=== PATIENT | male | born 1955 | race Caucasian/White ===

== ENCOUNTER 2017-07-04 09:10 | Emergency (ER) | payer BC ==
--- NOTE | 2017-07-04 10:14 | EDM.PDOC ---
ED HPI GENERAL MEDICAL PROBLEM - General Chief Complaint: Neuro Symptoms/Deficits Stated Complaint: MEMORY LOSS? Time Seen by Provider: 07/04/17 09:50 Source of Information: Reports: Patient, Family, RN History Limitations: Reports: No Limitations - History of Present Illness INITIAL COMMENTS - FREE TEXT/NARRATIVE: 61 yo male with a pHx of borderline AODM, and peripheral neuropathy for 14 yrs that has been stable awoke in the night with a mild L sided GALLARDO and then when he awoke this morning he had amnesia to yesterday's events for a few hrs. Is now back to normal, except he still has a GALLARDO. Here he has a mild BP elevation which is not normal for him, his last BP check was in 12/22. No family hx of dementia or cerebral aneurysms. No hx of head injury with LOC. No seizure hx. He takes an ASA tablet daily including today. He takes no other meds. He is here today with his who was the main medical van driver to get him to come in today. Onset: Today Onset Date: 07/04/17 Onset Time: 07:00 Duration: Hour(s):, Resolved Prior to Arrival Location: Reports: Head Quality: Reports: Ache Severity: Mild (Residual L sided GALLARDO persists, amnesia is resolved.) Improves with: Reports: Other (? time.) Worsens with: Reports: Other (unknown) Context: Reports: Other (unknown) Associated Symptoms: Reports: Headaches (mild, left sided) Treatments [employer] JOU[employer]LIST: Reports: Aspirin - Related Data Allergies Allergy/AdvReac Type Severity Reaction Status Date / Time No Known Allergies Allergy Verified 07/04/17 09:28 Home Meds: Home Meds Aspirin 1 tab PO DAILY 07/04/17 [History] Past Medical History - Past Surgical History GI Surgical History: Reports: Appendectomy Musculoskeletal Surgical History: Reports: Knee Replacement Social & Family History - Tobacco Use Smoking Status *Q: Never Smoker ED ROS GENERAL - Review of Systems Review Of Systems: See Below Constitutional: Reports: No Symptoms HEENT: Reports: No Symptoms Respiratory: Reports: No Symptoms Cardiovascular: Reports: No Symptoms Endocrine: Reports: No Symptoms GI/Abdominal: Reports: No Symptoms : Reports: No Symptoms Musculoskeletal: Reports: No Symptoms Skin: Reports: No Symptoms Neurological: Reports: Confusion (now resolved), Headache (mild, L sided) Psychiatric: Reports: No Symptoms ED EXAM, NEURO - Physical Exam Exam: See Below Exam Limited By: No Limitations General Appearance: Alert, WD/WN, No Apparent Distress Eye Exam: Bilateral Eye: EOMI, Normal Inspection, PERRL Ears: Normal External Exam, Normal Canal, Hearing Grossly Normal, Normal TMs Nose: Normal Inspection, Normal Mucosa, No Blood Throat/Mouth: Normal Inspection, Normal Lips, Normal Oropharynx, Normal Voice, No Airway Compromise Head Exam: Atraumatic, Normocephalic Neck: Normal Inspection, Supple, Non-Tender. No: Carotid Bruit Respiratory/Chest: No Respiratory Distress, Lungs Clear, Normal Breath Sounds, No Accessory Muscle Use Cardiovascular: Regular Rate, Rhythm, No Edema GI/Abdominal: Normal Bowel Sounds, Soft, Non-Tender Neurological: Alert, Normal Mood/Affect, CN II-XII Intact, Normal Gait, No Motor /Sensory Deficits, Oriented x 3. No: Ataxia, Abnormal Finger to Nose, Babinski , Tremor, Difficulty Walking Back Exam: Normal Inspection. No: CVA Tenderness (R), CVA Tenderness (L) Extremities: Normal Inspection, Normal Range of Motion, Non-Tender, No Pedal Edema Psychiatric: Normal Affect, Normal Mood Skin Exam: Warm, Dry, Intact, Normal Color, No Rash Course - Vital Signs Text/Narrative:: Consult with an Toni Perla neurologist @ 1040h Last Recorded V/S: Last Vital Signs Temp 36.1 C 07/04/17 09:39 Pulse 77 07/04/17 09:39 Resp 14 07/04/17 09:39 BP 146/95 H 07/04/17 09:39 Pulse Ox 98 07/04/17 09:39 - Orders/Labs/Meds Orders: Active Orders 24 hr Category Date Time Status Cardiac Monitoring [RC] .As Directed Care 07/04/17 10:02 Active Brain wo Cont [MR] Stat Exams 07/04/17 10:05 Taken Labs: Laboratory Tests 07/04/17 07/04/17 07/04/17 Range/Units 10:05 10:05 10:05 WBC 8.9 (4.5-11.0) K/uL RBC 5.63 (4.30-5.90) M/uL Hgb 16.1 H (12.0-15.0) g/dL Hct 47.7 (40.0-54.0) % MCV 85 (80-98) fL MCH 29 (27-31) pg MCHC 34 (32-36) % Plt Count 289 (150-400) K/uL PT 10.4 (9.5-12.0) sec INR 0.97 (0.80-1.20) APTT 25.9 L (27.0-36.0) sec Sodium 139 L (140-148) mmol/L Potassium 4.5 (3.6-5.2) mmol/L Chloride 105 (100-108) mmol/L Carbon Dioxide 26 (21-32) mmol/L Anion Gap 12.5 (5.0-14.0) mmol/L BUN 19 H (7-18) mg/dL Creatinine 1.0 (0.8-1.3) mg/dL Est Cr Clr Drug Dosing 80.53 mL/min Estimated GFR (MDRD) > 60 (>60) Glucose 106 (74-106) mg/dL Calcium 9.5 (8.5-10.1) mg/dL - Radiology Interpretation Free Text/Narrative:: MRI brain-negative for CVA CT Results Date: 07/04/17 CT Results Time: 11:04 Departure - Departure Time of Disposition: 11:23 Disposition: Home, Self-Care 01 Condition: Good Clinical Impression: Amnesia - Discharge Information Referrals: PCP,None [Primary Care Provider] - Forms: ED Department Discharge - My Orders Last 24 Hours: My Active Orders 07/04/17 10:02 Cardiac Monitoring [RC] .As Directed 07/04/17 10:05 Brain wo Cont [MR] Stat - Assessment/Plan Last 24 Hours: My Active Orders 07/04/17 10:02 Cardiac Monitoring [RC] .As Directed 07/04/17 10:05 Brain wo Cont [MR] Stat
--- NOTE | 2017-07-04 11:06 | MR ---
MR brain without contrast Indication: Transient global amnesia with headache. Findings: No restricted diffusion to indicate acute infarct. No hemosiderin deposition. Mild global a trophy. Cerebral vascular flow voids are patent. No evidence for mass. No definitive high T2 signal a bnormality within the deep white matter. Mastoid air cells are clear. Minimal ethmoidal mucosal thick ening. Impression: 1. No acute infarct. 2. Mild global atrophy.
== END 2017-07-04 11:59 | disposition home or self-care (01) ==
LOC: JP.ED 09:10
DX: R41.3 Other amnesia (principal); I10 Essential (primary) hypertension; Z79.82 Long term (current) use of aspirin
CPT/HCPCS: 36415; 70551; 70551-26; 80048; 85027; 85610; 85730; 99284

== ENCOUNTER 2021-03-21 19:06 | Emergency (ER) | payer BC, MEDICARE ==
--- NOTE | 2021-03-21 20:06 | EDM.PDOC ---
ED HPI GENERAL MEDICAL PROBLEM - General Chief Complaint: Head Injury Stated Complaint: FELL AND HIT HEAD Time Seen by Provider: 03/21/21 19:50 Source of Information: Reports: Patient, Family History Limitations: Reports: No Limitations - History of Present Illness INITIAL COMMENTS - FREE TEXT/NARRATIVE: 65-year-old male slipped on the ice tonight hitting the back of his head and upper shoulders and back. He did not get knocked out, has full memory of the event, has a slight headache but otherwise feels fine but his friends told him his "eyes looked funny" and recommended he be checked. No nausea or vomiting, no visual disturbances, no neurologic deficits. Onset: Sudden Duration: Hour(s): (About 1 hour ago) Location: Reports: Head, Neck, Back Associated Symptoms: Denies: Confusion, Chest Pain, Cough, Fever/Chills, Headaches, Malaise, Nausea/Vomiting, Shortness of Breath, Weakness head Pain Score (Numeric/FACES): 1 - Related Data Allergies Allergy/AdvReac Type Severity Reaction Status Date / Time No Known Allergies Allergy Verified 03/21/21 19:39 Home Meds: Home Meds Aspirin 81 mg PO DAILY 07/04/17 [History] Past Medical History HEENT History: Reports: Impaired Vision, Other (See Below) Other HEENT History: glasses for driving Cardiovascular History: Reports: High Cholesterol Genitourinary History: Reports: Renal Calculus Neurological History: Reports: Other (See Below) Other Neuro History: bilateral lower leg and feet neuropathy - Infectious Disease History Infectious Disease History: Reports: Chicken Pox, Measles - Past Surgical History GI Surgical History: Reports: Appendectomy Musculoskeletal Surgical History: Reports: Knee Replacement, Other (See Below) Other Musculoskeletal Surgeries/Procedures:: x2 knee replacement Social & Family History - Tobacco Use Tobacco Use Status *Q: Never Tobacco User - Caffeine Use Caffeine Use: Reports: Coffee - Recreational Drug Use Recreational Drug Use: No ED ROS GENERAL - Review of Systems Review Of Systems: See Below Constitutional: Denies: Fever, Chills HEENT: Denies: Vision Change Respiratory: Denies: Shortness of Breath Cardiovascular: Reports: No Symptoms Endocrine: Reports: No Symptoms GI/Abdominal: Reports: No Symptoms : Reports: No Symptoms Musculoskeletal: Reports: Neck Pain (Developing some mild neck and upper back discomfort, stiffness) Skin: Reports: Other (Slight abrasion and hematoma on the occiput of the skull) Neurological: Reports: Headache (Minimal if any headache) Psychiatric: Reports: No Symptoms ED EXAM, HEAD INJURY - Physical Exam Exam: See Below Exam Limited By: No Limitations General Appearance: Alert, No Apparent Distress Head: Scalp Hematoma (Broad hematoma on the occiput of the scalp with a small overlying abrasion) Nexus Criteria: No: Posterior, Midline Cervical Tenderness, Evidence of Intoxication, Altered Level of Consciousness, Focal Neurological Deficit, Painful Distraction Injuries Eyes: Bilateral Eye: Normal Inspection, PERRL Neck: Tenderness (Minimal paracervical muscle tenderness to palpation) Respiratory: No Respiratory Distress, Lungs Clear Cardiovascular: No Edema Extremities: Normal Inspection Neurologic: No Motor/Sensory Deficits, Alert, Normal Mood/Affect, Oriented x 3, Other (Negative Romberg, no pronator drift) Skin: Normal Color, Warm/Dry - Unity Coma Score Best Eye Response (Unity): (4) Open Spontaneously Best Verbal Response (Amor): (5) Oriented Best Motor Response (Amor): (6) Obeys Commands Course - Vital Signs Last Recorded V/S: Last Vital Signs Temp 98.1 F 03/21/21 19:42 Pulse 97 03/21/21 19:42 Resp 14 03/21/21 19:42 BP 181/75 H 03/21/21 19:42 Pulse Ox 97 03/21/21 19:42 - Re-Assessments/Exams Free Text/Narrative Re-Assessment/Exam: 03/21/21 22:49 Patient was reassured that no further work-up is necessary at this time, if he develops worsening symptoms he can return. Departure - Departure Time of Disposition: 20:36 Disposition: Home, Self-Care 01 Clinical Impression: Hematoma of occipital region of scalp, Minor closed head injury - Discharge Information Instructions: Head Injury, Adult Referrals: PCP,None [Primary Care Provider] - Forms: ED Department Discharge Care Plan Goals: Ice to any sore spots will be helpful for the next couple of days along with ibuprofen. Stay active, and return anytime if you develop symptoms that are concerning such as those we discussed. No need to limit activity as long as you are feeling fine. Consider rechecking in 5 to 7 days if still having persistent headache, dizziness, or other mild symptoms. Sepsis Event Note (ED) - Evaluation Sepsis Screening Result: No Definite Risk - Focused Exam Vital Signs: Vital Signs Temp Pulse Resp BP Pulse Ox 03/21/21 19:42 98.1 F 97 14 181/75 H 97 03/21/21 19:41 98.1 F 97 14 181/75 H 97
== END 2021-03-21 20:36 | disposition home or self-care (01) ==
LOC: JP.ED 19:06
DX: S00.03XA Contusion of scalp, initial encounter (principal); Z79.82 Long term (current) use of aspirin; W00.0XXA Fall on same level due to ice and snow, initial encounter
CPT/HCPCS: 99283